=== PATIENT | female | born 1975 | race Caucasian/White ===

== ENCOUNTER 2019-08-12 18:33 | Emergency (ER) | payer OTHER ==
[~2019-08-12] VITALS: Ht 149.9 cm; Wt 40.8 kg
[2019-08-12 19:00] LABS: URINE BILIRUBIN NEGATIVE (Negative); URINE BLOOD 2+ (Negative); URINE CLARITY SL CLOUDY; URINE COLOR YELLOW; URINE GLUCOSE-RANDOM* NEGATIVE (Negative); URINE KETONES NEGATIVE (Negative); URINE PROTEIN (DIPSTICK) 1+ (Negative); URINE SPECIFIC GRAVITY 1.025 (1.005-1.035)
[2019-08-12 19:01] LABS: URINE LEUKOCYTES-REFLEX 2+ (Negative); URINE NITRITE-REFLEX POSITIVE (Negative)
[2019-08-12 19:04] LABS: HEMOGLOBIN 13.1 gm/dL (12.0-15.0)
[2019-08-12 19:06] LABS: CALCIUM 9.9 mg/dL (8.5-10.1); CREATININE 0.9 mg/dL (0.6-1.0); HEMATOCRIT 38.9 % (37.0-47.0); MCHC 33.6 g/dL (28.0-37.0); MCV 89.5 fL (80.0-100.0); PLATELET COUNT 233 thou/uL (150-400); POTASSIUM 4.1 mmol/L (3.5-5.1); RBC 4.35 mil/uL (4.20-5.00); RDW 16.1 % (10.5-14.5); WBC 11.7 thou/uL (4.0-11.0)
[2019-08-12 19:12] LABS: ALBUMIN 3.1 g/dL (3.4-5.0); DIRECT BILIRUBIN 0.2 mg/dL (<0.1-0.2); TOTAL PROTEIN 8.2 g/dL (6.4-8.2)
[2019-08-12 19:20] LABS: SQUAMOUS >10 Many /LPF (0-3)
[2019-08-12 19:21] LABS: BACTERIA-REFLEX >30 Many /HPF (None Seen); URINE WBC-REFLEX >25 Many /HPF (0-5)
[2019-08-12 19:22] LABS: RENAL EPITHELIAL CELLS 0-3 Few /LPF (None Seen); TRANSITIONAL EPITHEL CELL 0-3 Few /LPF (None Seen); URINE RBC 3-10 Few /HPF (0-2); WBC CLUMPS Few (None Seen)
[2019-08-12 19:23] LABS: CASTS None Seen /LPF (None Seen); CRYSTALS None Seen /LPF (None Seen)
[2019-08-12 19:26] LABS: ABSOLUTE NEUTROPHILS 8.3 thou/uL (1.4-8.2); ATYPICAL LYMPHS 4 %; PLATELET ESTIMATE NORMAL
[2019-08-12 19:27] LABS: ANISOCYTOSIS SLIGHT
[2019-08-12] MEDS ORDERED: NAPROSYN500 MG PO (20:22)
[2019-08-12] MEDS ORDERED: ZOFRAN ODT4 MG PO (20:22)
[2019-08-12] MEDS ORDERED: KEFLEX500 M1 PO (20:22)
[2019-08-12 20:57] VITALS: BP 101/57
== END 2019-08-12 20:58 | disposition home or self-care (01) ==
LOC: ER 18:33
PROVIDERS: Emergency Medicine
DX: N39.0 Urinary tract infection, site not specified (principal); R10.11 Right upper quadrant pain